=== PATIENT | female | born 1935 | race Caucasian/White ===

== ENCOUNTER 2020-04-27 13:00 | Emergency (ER) | payer OTHER ==
[~2020-04-27] VITALS: Ht 160 cm; Wt 56.7 kg
[2020-04-27 20:50] VITALS: BP 132/68
== END 2020-04-27 21:04 | disposition designated cancer center or children's hospital (05) ==
LOC: ER 13:00
DX: R45.851 Suicidal ideations (principal); I10 Essential (primary) hypertension; Z20.828 Contact with and (suspected) exposure to other viral communicable diseases